=== PATIENT | female | born 1985 | race Caucasian/White ===

== ENCOUNTER 2018-08-13 20:01 | Observation (INO) | payer MEDICARE ==
--- NOTE | 2018-08-13 20:41 | ED Physician Chart ---
ED Chief Complaint/HPI - Patient Information Date Seen:: 08/13/18 Time Seen:: 20:30 Chief Complaint:: chest pain History of Present Illness:: Patient developed midsternal pain and pain to the left of the mid sternum about one and one half weeks ago. When the patient moves her arms and gets up from a supine position pain radiates down both arms. Pain is also mildly pleuritic. She feels a pounding heartbeat and the heart striking the sternum which causes sternal pain. Patient has had no recent upper respiratory tract infection or cough. Allergies:: Allergies Allergy/AdvReac Type Severity Reaction Status Date / Time No Known Allergies Allergy Verified 08/13/18 20:14 Vitals:: Vital Signs - 8 hr 08/13/18 20:05 Temp 99 F HR 82 RR 16 BP 112/74 O2 Sat % 98 Historian:: Patient Review:: Nurse's Note Reviewed ED Review of Systems - Review of Systems General/Constitutional: No fever, No chills Skin: No skin lesions Head: No headache Eyes: No loss of vision ENT: No earache Neck: No neck pain Cardio Vascular: Chest pain Pulmonary: No SOB GI: No nausea, No vomiting, No diarrhea G/U: No dysuria Musculoskeletal: Bone or joint pain Endocrine: No polyuria Psychiatric: No prior psych history Hematopoietic: No bruising, No lymphadenopathy Allergic/Immuno: No urticaria Neurological: No syncope, No focal symptoms ED Past Medical History - Past Medical History Past Medical History: No significant medical hx (status post pneumonia 2 years ago), Other Family History: None Social History: Smoker, No Alcohol, Other (smokes one pack of cigarettes a day ) Surgical History: None Psychiatricy History: None Medication: None Family Medical History - Family Member Mother History Unknown: Yes ED Physical Exam - Physical Examination General/Constitutional: Awake, Well-developed, well-nourished, Alert, No distress, GCS 15, Non-toxic appearing, Ambulatory Head: Atraumatic Eyes: Lids, conjuctiva normal, PERRL, EOMI Skin: Nl inspection, No rash, No skin lesions, No ecchymosis, Well hydrated, No lymphadenopathy ENMT: External ears, nose nl, Nasal exam nl, Lips, teeth, gums nl Neck: Nontender, Full ROM w/o pain, No JVD, No nuchal rigidity, No bruit, No mass, No stridor Respiratory: Nl effort/Exclusion, Clear to Auscultation, No Wheeze/Rhonchi/Rales Other Respiratory comments:: Tenderness of midsternum and to its left along costo-sternal junction Cardio Vascular: RRR, No murmur, gallop, rubs, NL S1 S2 GI: No tenderness/rebounding/guarding, No organomegaly, No hernia, Normal BS's, Nondistended, No mass/bruits, No McBurney tenderness : No CVA tenderness Extremities: No tenderness or effusion, Full ROM, normal strength in all extremities, No edema, Normal digits & nails Neuro/Psych: Alert/oriented, DTR's symmetric, Normal sensory exam, Normal motor strength, Judgement/insight normal, Mood normal, Normal gait, No focal deficits Misc: Normal back, No paraspinal tenderness ED Labs/Radiology/EKG Results - Lab Results Results: Laboratory Results - last 24 hr 08/13/18 08/13/18 08/13/18 20:38 20:53 20:53 WBC 7.6 RBC 4.73 Hgb 14.5 Hct 42.8 MCV 90.4 MCH 30.6 MCHC Differential 33.9 RDW 11.8 Plt Count 359 MPV 7.4 Neutrophils % 58.6 Lymphocytes % 27.1 Monocytes % 11.8 H Eosinophils % 1.9 Basophils % 0.6 Sodium 138 Potassium 3.4 L Chloride 105 Carbon Dioxide 26.4 Anion Gap 10.0 BUN 9 Creatinine 0.7 Est GFR ( Amer) > 60.0 Est GFR (Non-Af Amer) > 60.0 BUN/Creatinine Ratio 12.9 Glucose 66 L Calcium 9.8 Magnesium 2.2 Troponin I Urine Test NEGATIVE 08/13/18 20:53 WBC RBC Hgb Hct MCV MCH MCHC Differential RDW Plt Count MPV Neutrophils % Lymphocytes % Monocytes % Eosinophils % Basophils % Sodium Potassium Chloride Carbon Dioxide Anion Gap BUN Creatinine Est GFR ( Amer) Est GFR (Non-Af Amer) BUN/Creatinine Ratio Glucose Calcium Magnesium Troponin I < 0.01 L Urine Test - Radiology Results Results: Chest x-ray normal - EKG Interpretations Rate & Rhythm: normal sinus rhythm with a rate of 80 [place]: normal Comments:: [address] elevation in leads V1 and V2 and inverted T-wave in lead V1 ED Assessment - Assessment General Assessment: Patient's EKG is slightly concerning for Brugada syndrome although the ST elevation in leads V1 and V2 is only 1 mm but she does have an inverted T-wave in lead V1. Patient's symptoms seem most compatible with costochondritis. ED Septic Shock - . Is Septic Shock (SBP<90, OR Lactate>4 mmol\L) present?: No - <6hrs of presentation: Vital Signs: Vital Signs - 8 hr 08/13/18 20:05 Temp 99 F HR 82 RR 16 BP 112/74 O2 Sat % 98 ED Reassessment (Disposition) - Reassessment Reassessment Condition:: Unchanged - Diagnosis Diagnosis:: Costochondritis; hypokalemia; atypical chest pain - Patient Disposition Admitted to:: Telemetry Spoke to:: Cj Felder Admitting Medical Physician:: Cj Felder Condition at Disposition:: Stable, Unchanged
[2018-08-13 21:00] LABS: % BASOPHILS 0.6 % (0.0-2.0); % EOSINOPHILS 1.9 % (0.0-5.0); % LYMPHOCYTES 27.1 % (20.0-50.0); % MONOCYTES 11.8 % (2.0-10.0); % NEUTROPHILS 58.6 % (40.0-80.0); EOSINOPHILE ABSOLUTE 0.1 Th/cmm (0.1-0.4); HEMATOCRIT 42.8 % (41.0-60); HEMOGLOBIN 14.5 gm/dL (12-16); LYMPHOCYTE ABSOLUTE 2.1 Th/cmm (1.5-3.0); MEAN CELL VOLUME 90.4 fl (81-100); MEAN CORPUSCULAR HEMOGLOBIN 30.6 pg (27.0-31.0); MEAN CORPUSCULAR HGB CONC 33.9 pg (28.0-36.0); MEAN PLATELET VOLUME 7.4 fl; MONOCYTE ABSOLUTE 0.9 Th/cmm (0.3-1.0); NEUTROPHILE ABSOLUTE 4.5 Th/cmm (1.8-8.0); PLATELET COUNT 359 Th/cmm (150-400); RED BLOOD COUNT 4.73 Mil/cmm (3.80-5.10); RED CELL DISTRIBUTION WIDTH 11.8 % (11.5-20.0); WHITE BLOOD COUNT 7.6 Th/cmm (4.8-10.8)
[2018-08-13 21:18] LABS: BUN - UREA NITROGEN 9 mg/dL (7-25); CALCIUM SERUM 9.8 mg/dL (8.6-10.3); CARBON DIOXIDE 26.4 mEq/L (21.0-31.0); CHLORIDE 105 mEq/L (98-107); CREATININE - SERUM 0.7 mg/dL (0.6-1.2); GFR AFRICAN-AMERICAN > 60.0 ml/min (>90); GFR NON AFRICAN-AMERICAN > 60.0 ml/min; GLUCOSE 66 mg/dL (70-105); MAGNESIUM 2.2 mg/dL (1.9-2.7); POTASSIUM SERUM 3.4 mEq/L (3.5-5.1); SODIUM SERUM 138 mEq/L (136-145)
[2018-08-13] MEDS ORDERED: Aspirin 81mg Chewable Tab PO STA (22:10)
[2018-08-13] MEDS ORDERED: Potassium Chloride 20 mEq ER Tab PO ONE ×2 (22:15→22:17)
[2018-08-13] MEDS ORDERED: Aspirin 81mg Chewable Tab ONE (22:16)
[2018-08-13] MEDS ORDERED: Acetaminophen 500 MG TAB PO PRN (22:46)
[2018-08-13 23:36] LABS: AMPHETAMINE URINE NEGATIVE (NEGATIVE); BARBITURATES URINE NEGATIVE (NEGATIVE); BENZODIAZEPINES QUAL URINE NEGATIVE (NEGATIVE); CANNABINOID THC NEGATIVE (NEGATIVE); COCAINE METABOLITE QUAL URINE NEGATIVE (NEGATIVE); METHADONE URINE NEGATIVE (NEGATIVE); METHAMPHETAMINES QUAL URINE NEGATIVE (NEGATIVE); OPIATES (MORPHINE) QUAL. URINE NEGATIVE (NEGATIVE); PHENCYCLIDINE (PCP) URINE NEGATIVE (NEGATIVE); TRICYCLICS (TCA) QUAL. URINE NEGATIVE (NEGATIVE)
[2018-08-14 06:22] VITALS: BP 131/71
--- NOTE | 2018-08-14 08:35 | Diagnostic Imaging Report ---
CHEST X-RAY: AP view INDICATION: pain COMPARISON: None FINDINGS: There is no focal consolidation or pleural effusions The heart is normal in size. The osseous structures demonstrate no acute abnormalities. IMPRESSION: No acute cardiopulmonary disease.
--- NOTE | 2018-08-14 17:26 | Consultation ---
DATE OF CONSULTATION: 08/14/2018 The patient Virginia Emerita Corona. HISTORY OF PRESENT ILLNESS: This is a 33-year-old female patient who had been complaining of chest pain and the patient was in [place] in the Emergency Room where the patient stayed for a few hours, then left. The patient came here to the urgent care where the patient was advised to come to the Emergency Room. At the present time, the patient was seen in the Emergency Room and admitted for chest pain, most likely costochondritis. PAST MEDICAL HISTORY: Unremarkable. FAMILY HISTORY: Unremarkable. SOCIAL HISTORY: No history of smoking, alcohol abuse. ALLERGIES: No known allergies. PHYSICAL EXAMINATION: VITAL SIGNS: Blood pressure 120/80, pulse 70, and respirations 20. HEAD: Normocephalic. No lumps or bumps. EYES: Pupils equal, reactive to light. Fundi show AV nicking, sclerae white, conjunctivae pink. NECK: Carotid 2+. Normal upstroke. JVD flat. Thyroid not palpable. Lymph nodes not palpable. CHEST: Shows increased AP diameter. No kyphosis, scoliosis. LUNGS: Bilateral bronchovesicular breath sounds. HEART: PMI fifth intercostal space with lateral to midclavicular line. S1, S2. No S3, S4, soft systolic murmur. ABDOMEN: Soft. Liver, spleen not palpable. No organomegaly. Bowel sounds active. NEUROLOGIC: Unremarkable. EXTREMITIES: Peripheral pulses 2+. No pedal edema. CLINICAL IMPRESSION: 1. Chest pain, costochondritis. 2. Possible Brugada syndrome due to ST elevation in lead 1 and two 1 mm. She does have an inverted T-wave in lead with 1. PLAN: Admit the patient. We will get troponin level. Echocardiogram unremarkable. JOB# [id number]
--- NOTE | 2018-08-14 17:55 | Cardiology ---
08/14/[address] Felder. M-MODE ECHOCARDIOGRAM: Mitral valve, anterior leaflet of mitral valve shows normal excursion, EF velocity. Posterior leaflet of the mitral valve shows normal excursion. Left ventricular posterior wall showed normal thickness, excursion. Interventricular septum showed normal thickness, excursion. Ejection fraction 61%. Left atrium normal. Aortic root shows normal dimension, normal excursion of aortic leaflets. CONCLUSION: Normal M-mode echo, ejection fraction is 61%. 2D ECHO: Long axis view showed normal sized left ventricle with normal wall motion, mitral valve shows normal excursion. Left atrium normal. Aortic root shows normal dimension, normal excursion of aortic leaflets. Short axis view of mitral valve normal. Short axis view of aortic valve normal. Apical four chamber view showed normal sized left ventricle, left atrium, right ventricle, right atrium, tricuspid and mitral valve. Ejection fraction 61%. CONCLUSION: Normal 2D echo, ejection fraction 61%. Doppler study shows trace tricuspid regurgitation, right ventricular systolic pressure 25 mmHg. [facility]# [id number]
--- NOTE | 2018-08-17 16:20 | History & Physical ---
ADMIT DATE: 08/14/2018 CHIEF COMPLAINT: Chest pain. HISTORY OF PRESENT ILLNESS: This is a 33-year-old female who was evaluated in the Emergency Room for chest pain, left-sided, nonradiating, no associated dizziness, no diaphoresis, but there was associated palpitations. The patient had EKG done, history of Brugada syndrome. Also, the patient was admitted for further treatment. The patient was seen by skate boarder today. The patient has been asymptomatic. The patient denies any prior cardiac history or no prior cardiac evaluations. Denies any syncope, no dyspnea on exertion or any family history of significant cardiac disease. PAST MEDICAL HISTORY: Denies. PAST SURGICAL HISTORY: Denies. FAMILY HISTORY: Denies. SOCIAL HISTORY: Lives at home. She is a registered nurse. Denies any alcohol, tobacco or street drug use. CURRENT MEDICATIONS: Per medication reconciliation. ALLERGIES: No drug allergies. REVIEW OF SYSTEMS: As per HPI. The 12-point system is negative. PHYSICAL EXAMINATION: VITAL SIGNS: Temperature 99.0, pulse 82, respiration 16, blood pressure 112/74, oxygen saturation 90% on room air. HEENT: Unremarkable. HEART: S1, S2 normal. LUNGS: Clear to auscultation. ABDOMEN: Soft, nontender, nondistended, no guarding. NEUROLOGIC: Follows commands, no focal deficits. EXTREMITIES: No edema. AVAILABLE LABORATORY DATA: As noted. ASSESSMENT: 1. Atypical chest pain. 2. Brugada syndrome. PLAN: The patient was seen by Cardiology. Care discussed with Cardiology. Cardiology cleared the patient for home discharge with outpatient Cardiology followup. The patient's heart rate is currently stable, rhythm is stable. The patient is currently asymptomatic. Discussed with the patient regarding her condition and plan of care, she verbalized understanding. Discussed with nursing staff. JOB# [id number]
--- NOTE | 2018-08-31 17:45 | Discharge Summary ---
DATE OF DISCHARGE: 08/14/2018 FINAL DIAGNOSES: 1. Atypical chest pain. 2. Brugada syndrome. HOSPITAL COURSE: This is a 33-year-old female who was admitted for evaluation of the atypical chest pain, admitted for cardiology workup, seen by professional employer consultant. The patient's EKG showed possible Brugada syndrome. The patient's tele monitoring was remained stable. No arrhythmia noted. The patient's vital signs remained stable. The patient remained chest pain free. Seen by Cardiology, cardiology cleared the patient for home discharge with outpatient cardiology followup. Overall, stay was uneventful. DISCHARGE CONDITION: Stable. DISCHARGE MEDICATIONS: Please see medication reconciliation. DISCHARGE INSTRUCTIONS: The patient was advised to follow with Cardiology outpatient. [facility]# [id number]
== END 2018-08-14 19:40 | disposition home or self-care (01) ==
LOC: ER 20:01 → INTOOBSV 21:50 → TELE 21:50
PROVIDERS: ADMIT Family Medicine; ATTEND Family Medicine
DX: R07.89 Other chest pain (principal); I49.8 Other specified cardiac arrhythmias
CPT/HCPCS: 36415-UA; 71045-TC; 80048-TC; 80307; 81025-TC; 83735-TC; 84484-TC; 85025-TC; 93005; G0378; Z7610